=== PATIENT | female | born 2005 | race Caucasian/White ===

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

== ENCOUNTER → 2025-02-04 | Outpatient (CLI) | payer OTHER ==
[~2025-02-04] MED LIST changes: +COLA100C5 PO; +IBUP600T42 PO; +OXYC1TAB23 PO
== END ==
LOC: M RAD 13:13
PROVIDERS: ATTEND Nurse Practitioner Family
DX: R10.20 Pelvic and perineal pain unspecified side (principal)